=== PATIENT | male | born 1990 | race Caucasian/White ===

== ENCOUNTER 2017-07-08 03:26 | Emergency (ER) | payer SELFPAY ==
[~2017-07-08] VITALS: Ht 167.6 cm; Wt 56.2 kg
[2017-07-08 03:41] VITALS: Ht 167.6 cm; Wt 56.2 kg
--- NOTE | 2017-07-08 06:33 | ERA ---
ER Documentation Chief Complaint Date/Time DATE: 07/08/17 TIME: 06:30 Chief Complaint rt 3rd finger injury. metal object smashed finger at work 2am today HPI 26-year-old otherwise healthy male presenting 4 hours status post right third digit injury while at work. Patient works for [employer]. A steel crate smashed his finger against a steel pole. Has not taken any medications to relieve the symptoms. Has started icing the injury while waiting in the emergency department. Denies any medical conditions. Denies injury to other areas. Patient has no other complaints and describes no other associated manifestations. Nursing notes have been reviewed and are consistent with history given. ROS All systems reviewed and are negative except as per history of present illness. Allergies Allergies: Uncoded Allergies: PENCILLIN (Allergy, Severe, 07/08/17) PMhx/Soc Medical and Surgical Hx: pt denies Medical Hx, pt denies Surgical Hx Hx Alcohol Use: Yes Hx Substance Use: No Hx Tobacco Use: No Physical Exam Vitals Vital Signs Date Time Temp Pulse Resp B/P Pulse Ox O2 Delivery O2 Flow Rate FiO2 07/08/17 03:41 97.7 67 18 153/83 99 Physical Exam Const: Well-appearing 26-year-old male in no acute distress Head: Atraumatic Eyes: Normal Conjunctiva ENT: Normal External Ears, Nose and Mouth. Neck: Full range of motion..~ No meningismus. Resp: Clear to auscultation bilaterally Cardio: Regular rate and rhythm, no murmurs Abd: Soft, non tender, non distended. Normal bowel sounds Skin: No petechiae or rashes Back: No midline or flank tenderness Ext: Right third digit swelling. Tenderness to palpation. Maximal swelling over the PIP. Swelling does not extend beyond the MCP. No erythema warmth or opening in the skin noted. No signs of infection. Neur: Awake and alert Psych: Normal Mood and Affect Results 24 hrs Current Medications Medications (Trade) Dose Ordered Sig/Genaro Route PRN Reason Start Time Stop Time Status Last Admin Dose Admin Ibuprofen (Motrin) 400 mg ONCE ONCE PO 07/08/17 07:30 07/08/17 07:31 07/08/17 07:14 Procedures/MDM Patient presents for hours status post right third digit injury as stated in the history and physical examination. X-ray was ordered. Patient refused pain medications. X-ray was read by the radiologist given the following impression: Unremarkable. I have little suspicion for bony pathology, or neurovascular compromise. Patient will be discharged with recommendation for ibuprofen [id number] for discomfort and swelling. I have spoke with the patient regarding their condition and future management. Patient requested pain medication before discharge. 600 mg ibuprofen p.o. was given. They have verbally responded that they understand their status and treatment plan. The patients vitals are stable , and their current condition is appropriate for discharge. The patient will be given discharge instructions with return precautions. Departure Diagnosis: Primary Impression: Finger injury Qualified Code: S69.91XA - Injury of finger of right hand, initial encounter Additional Impression: Pain of finger Qualified Code: M79.644 - Pain of finger of right hand Condition: Stable ROXANA VERA PA-C Jul 08, 2017 06:33
--- NOTE | 2017-07-08 07:00 | RADRPT ---
PROCEDURE: XR Right middle finger CLINICAL INDICATION: Crush injury TECHNIQUE: AP, oblique and lateral views of the right third finger were obtained. COMPARISON: No prior studies are available for comparison. FINDINGS: The bones of the hand appear intact, with no evidence of fracture, dislocation, or subluxation. The joint spaces are preserved. Bone mineralization is normal. Soft tissue swelling is seen. IMPRESSION: Soft tissue swelling. No evidence of fracture. Physician Minerva Date Time Electronically viewed and signed by Physician Minerva on 07/08/2017 06:59 CS/
[2017-07-08 07:14] VITALS: BP 133/78; PULSE 70; RESP 16; TEMP 98.6
[2017-07-08] MEDS ORDERED: IBUPROFEN 200 MG TAB PO ONE (07:30)
== END 2017-07-08 07:20 | disposition home or self-care (01) ==
LOC: FTE 03:26
DX: S69.91XA Unspecified injury of right wrist, hand and finger(s), initial encounter (principal); W23.0XXA Caught, crushed, jammed, or pinched between moving objects, initial encounter; Y92.89 Other specified places as the place of occurrence of the external cause
CPT/HCPCS: 73140